=== PATIENT | female | born 1965 | race Caucasian/White ===

== ENCOUNTER → 2017-02-17 | Day surgery (SDC) | payer BC ==
[~2017-02-17] MED LIST: CELECOXIB200 MG PO; CLARINEX5 MG PO; CRANBERRY500 MG PO; ESTRADIOL TD; FISH OIL 1,0001 CAP PO; METAXALONE800 M1 PO; MONTELUKAST SOD10 MG PO; MULTI VITAMIN1 EACH PO; NASONEX17 GM; PROBIOTIC1 EAC3 PO; PROGESTERONE100 MG PO; SYNTHROID88 MCG PO
--- NOTE | ~2017-02-17 | OR ---
Unit #: [id number] #: [id number] Patient: ZANDRA VALENTINO [id number] [address] [address] [id number] O MR#: [id number] NAME: ZANDRA VALENTINO ROOM: Date of Procedure: 02/17/2017 Admission Date: 02/17/2017 Surgeon: José Miguel Schmidt M.D. : 1965 Attending Physician: José Miguel Schmidt M.D. Primary Care Physician: Gina Alcaraz M.D. OPERATIVE REPORT PREOPERATIVE DIAGNOSES 1. Neck pain. 2. Cervical radiculopathy. 3. Degenerative cervical disk disease. POSTOPERATIVE DIAGNOSES 1. Neck pain. 2. Cervical radiculopathy. 3. Degenerative cervical disk disease. PROCEDURE PERFORMED Cervical epidural steroid injection with intravenous sedation and fluoroscopic guidance for needle localization. INDICATIONS FOR PROCEDURE The patient is a 51-year-old female with previous mentioned diagnosis. She has significant cervical disk osteophyte complex at C5-C6 level with severe right neural foraminal stenosis based on the right C6 nerve root that was less significant. There was still moderately bad problems at C4-C5. The patient has failed to settle with conservative treatment including medication management, rehabilitation, and PT. Those modalities revealed some nonsustained improvement. Several years ago, she had epidural steroid injections, it did give her good prolonged improvement. DESCRIPTION OF PROCEDURE The patient was placed in the seated position. Standard monitors were applied. 2 mg of Versed were given for sedation and anxiolysis, which were adequate. Vital signs remained stable. Sterile prep and drape then of the cervical area was performed. The skin then at the C6 level was localized with 1% lidocaine. An 18-gauge [employer] needle was then advanced via hanging drop technique and fluoroscopic guidance in toward the epidural space. The patient did not complain of any pain or paresthesia during needle advancement. After confirming proper needle tip positioning with fluoroscopy and radiographic contrast, 80 mg of Depo-Medrol and 2 mL of 0.25% bupivacaine were deposited. The patient tolerated the procedure otherwise well and was discharged to the recovery room in stable condition. Dictated by... José Miguel Schmidt M.D. [facility] Unit #: [id number] #: [id number] Patient: ZANDRA VALENTINO Ramirez TD: 02/17/2017 23:07 JOB #: [id number] OPERATIVE REPORT Page 1 of 1 X José Miguel Schmidt MD X PROCEDURE OPERATIVE NOTE
== END | disposition home or self-care (01) ==
LOC: CCSC 08:00
DX: M50.121 Cervical disc disorder at C4-C5 level with radiculopathy (principal)
CPT/HCPCS: J1040; J2250

== ENCOUNTER → 2017-02-24 | Day surgery (SDC) | payer BC ==
--- NOTE | ~2017-02-24 | OR ---
Unit #: [id number] #: [id number] Patient: ZANDRA VALENTINO [id number] [address] [address] [id number] O MR#: [id number] NAME: ZANDRA VALENTINO ROOM: Date of Procedure: 02/24/2017 Admission Date: 02/24/2017 Surgeon: José Miguel Schmidt M.D. : 1965 Attending Physician: José Miguel Schmidt M.D. Primary Care Physician: Gina Alcaraz M.D. OPERATIVE REPORT JOB NOTE: CC : [facility] PREOPERATIVE DIAGNOSES 1. Degenerative cervical disk disease. 2. Neck pain. 3. Cervical radiculopathy. POSTOPERATIVE DIAGNOSES 1. Degenerative cervical disk disease. 2. Neck pain. 3. Cervical radiculopathy. PROCEDURE PERFORMED Cervical epidural steroid injection with intravenous sedation and fluoroscopic guidance for needle localization. HISTORY The patient is a 51-year-old female with neck, occipital, and neuralgia headaches and intermittent upper extremity radicular pain associated with cervical disk and spine disease most significant at C4-C5 and C5-C6. The patient failed several conservative treatment. Initial epidural steroid injection resulted in somewhat better symptoms during the course of the last week. She has not had any arm pain, still has intermittent headaches and neck pain. Overall, she is somewhat better. In the past, taken the second injection before she had a significant improvement of her symptom complex. Based on history, pathology, and symptomatology, we are going to proceed with a second injection today. DESCRIPTION OF PROCEDURE The patient was placed in a seated position. Standard monitors were applied. A 2 mg of Versed were given for sedation and anxiolysis, which were adequate. Vital signs remained stable. Sterile prep and drape then of the cervical area was performed. The skin at the C6 level was localized with 1% lidocaine. An 18-gauge [employer] needle was then advanced via hanging drop technique and fluoroscopic guidance in toward the epidural space. After confirming proper positioning with fluoroscopy and radiographic contrast, 80 mg of Depo-Medrol and 2 mL of 0.25% bupivacaine were deposited. The patient otherwise tolerated the procedure well and was discharged to the recovery room in stable condition. Dictated by... Unit #: [id number] #: [id number] Patient: LAZARA VALENTINOLenora Deleon/cherise TD: 02/25/2017 00:15 JOB #: [id number] OPERATIVE REPORT Page 1 of 1 X José Miguel Schmidt MD X PROCEDURE OPERATIVE NOTE
== END | disposition home or self-care (01) ==
LOC: CCSC 07:23
DX: M50.10 Cervical disc disorder with radiculopathy, unspecified cervical region (principal); E03.9 Hypothyroidism, unspecified
CPT/HCPCS: J1040; J2250

== ENCOUNTER → 2017-03-10 | Day surgery (SDC) | payer BC ==
--- NOTE | ~2017-03-10 | OR ---
Unit #: [id number] #: [id number] Patient: ZANDRA VALENTINO [id number] [address] [address] [id number] O MR#: [id number] NAME: ZANDRA VALENTINO ROOM: Date of Procedure: 03/10/2017 Admission Date: 03/10/2017 Surgeon: José Miguel Schmidt M.D. : 1965 Attending Physician: José Miguel Schmidt M.D. Primary Care Physician: Gina Alcaraz M.D. OPERATIVE REPORT PREOPERATIVE DIAGNOSES 1. Neck pain. 2. Cervical radiculopathy. 3. Degenerative cervical disk disease. 4. Cervicogenic headaches. POSTOPERATIVE DIAGNOSES 1. Neck pain. 2. Cervical radiculopathy. 3. Degenerative cervical disk disease. 4. Cervicogenic headaches. PROCEDURE PERFORMED Cervical epidural steroid injection with intravenous sedation and fluoroscopic guidance for needle localization. INDICATIONS FOR PROCEDURE The patient is a 51-year-old female with neck and intermittent upper extremity pain and cervicogenic headaches associated with nonsurgical degenerative disk disease and disk osteophyte complexes, most significant at the C5-C6 level. The patient failed to settle prolonged with conservative treatment and conservative measures, so the decision made to give her trial of epidural steroids. Two were done over the last several weeks, first gave moderate improvement in her neck pain and upper extremity pain, but not helped her headache very much. Second injection was given much more significant improvement in all components of her pain. She failed to increase her rehabilitation and physical therapy and is feeling much better overall. Based on her good response to proceed with a final injection today, follow the patient up then several weeks time back at the [facility]. DESCRIPTION OF PROCEDURE The patient was placed in a seated position. Standard monitors were applied. 2 mg of Versed were given for sedation and anxiolysis, which were adequate. Vital signs remained stable. Sterile prep and drape then of the cervical area was performed. The skin at the C6-C7 level was localized with 1% lidocaine. An 18-gauge [employer]eloop needle was then advanced via loss of resistance technique and fluoroscopic guidance in toward the epidural space. After confirming proper needle tip positioning with fluoroscopy and radiographic contrast, 80 mg of Depo-Medrol and 1 mL of 0.25% bupivacaine were deposited. The patient tolerated the procedure otherwise well and was discharged to the recovery room in stable condition. Unit #: [id number] #: [id number] Patient: ZANDRA VALENTINO Dictated by... Lenora Lowery/cherise TD: 03/10/2017 23:09 JOB #: [id number] OPERATIVE REPORT Page 1 of 1 X José Miguel Schmidt MD X PROCEDURE OPERATIVE NOTE
== END | disposition home or self-care (01) ==
LOC: CCSC 07:47
DX: M50.122 Cervical disc disorder at C5-C6 level with radiculopathy (principal)
CPT/HCPCS: J1040; J2250